=== PATIENT | male | born 1960 | race Hispanic/Latino ===

== ENCOUNTER 2020-10-24 08:52 | Emergency (ER) | payer SELFPAY ==
[2020-10-24] MEDS ORDERED: Sodium Chloride 0.9% 1,000 ML ONE (09:34)
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
[2020-10-24 10:15] LABS: #Basophils 0.1 thou/uL (0.0-0.2); #Eosinphils 0.1 thou/uL (0.0-0.7); #Lymphocytes 1.5 thou/uL (1.20-3.40); #Monocytes 0.4 thou/uL (0.11-0.59); #Neutrophils 4.6 thou/uL (1.40-6.50); %Basophils 0.9 % (0.0-1.0); %Lymphocytes 22.2 % (21.0-51.0); %Monocytes 6.6 % (0.0-10.0); %Neutrophils 69.3 % (42.0-75.0); Hemoglobin 13.2 g/dL (14.0-18.0); Mean Corpuscular HGB CONC 33.4 g/dL (32.0-36.0); Mean Corpuscular Hemoglobin 28.8 pg (27.0-31.0); Mean Corpuscular Volume 86.2 fL (78.0-98.0); Mean Platelet Volume 7.5 fL (7.4-10.4); Platelet Count 191 thou/uL (130-400); RBC Distribution Width 11.2 % (11.5-14.5); Red Blood Cell (RBC) Count 4.58 mill/uL (4.70-6.10); White Blood Cell (WBC) Count 6.6 thou/uL (4.8-10.8)
[2020-10-24 10:29] LABS: ALT (SGPT) 20 U/L (8-55); AST (SGOT) 17 U/L (5-34); Albumin 3.7 g/dL (3.5-5.0); Alcohol Less than 10 mg/dL (Less than 10); Alkaline Phosphatase 143 U/L (40-110); Anion Gap 13 mmol/L (10-20); BUN (Urea Nitrogen) 15 mg/dL (8.4-25.7); Bilirubin, Total 0.3 mg/dL (0.2-1.2); Calc. Creatinine Clearance 0 mL/min (70-130); Calcium 8.3 mg/dL (7.8-10.44); Carbon Dioxide 25 mmol/L (22-29); Chloride 104 mmol/L (98-107); Globulin 2.8 g/dL (2.4-3.5); Glucose 401 mg/dL (70-105); Potassium 3.9 mmol/L (3.5-5.1); Protein, Total 6.5 g/dL (6.0-8.3); Sodium 138 mmol/L (136-145)
[2020-10-24] MEDS ORDERED: Insulin Regular 300 UNITS/3 ML VIAL ONE (10:54)
[2020-10-24 11:52] LABS: Bilirubin Negative (Negative); Blood, Urine Negative (Negative); Clarity Clear (Clear); Glucose, Urine (Dipstick) >=1000 mg/dL (Negative); Ketone, Urine 15 mg/dL (Negative); Leukocyte Negative (Negative); Nitrite Negative (Negative); Protein, Urine (Dipstick) Trace mg/dL (Neg-Trace); Urobilinogen 0.2 mg/dL (Less than 2)
[2020-10-24 12:26] LABS: Cocaine Metabolite Screen Not Detected (NotDetected); Phencyclidine (PCP) Not Detected (NotDetected); THC/Cannabinoid Screen Not Detected (NotDetected)
[2020-10-24 12:27] LABS: Amphetamine Not Detected (NotDetected); Barbiturates Screen Not Detected (NotDetected); Benzodiazepine Screen Not Detected (NotDetected); Medtox Control Line Valid? VALID (VALID); Methadone Not Detected (NotDetected); Methamphetamine Detected (NotDetected); Opiate Screen Not Detected (NotDetected); Oxycodone Screen Not Detected (NotDetected); Tricyclic Screen Not Detected (NotDetected)
== END 2020-10-24 12:32 | disposition home or self-care (01) ==
LOC: MADERS 08:52
DX: S06.0X0A Concussion without loss of consciousness, initial encounter (principal); E11.65 Type 2 diabetes mellitus with hyperglycemia; F15.10 Other stimulant abuse, uncomplicated; K21.9 Gastro-esophageal reflux disease without esophagitis; E78.5 Hyperlipidemia, unspecified; E78.00 Pure hypercholesterolemia, unspecified; Z79.84 Long term (current) use of oral hypoglycemic drugs; V89.2XXA Person injured in unspecified motor-vehicle accident, traffic, initial encounter
CPT/HCPCS: 36415; 36416; 70450; 71045; 72125; 80053; 80306; 80307; 81003; 85025; 94760; 96374; J1815; J7050

== ENCOUNTER 2021-01-31 14:12 | Emergency (ER) | payer OTHER, SELFPAY ==
[~2021-01-31 14:12] MED LIST: Sodium Chloride 0.9% 1,000 ML BAG ONE; Sodium Chloride 0.9% 100 ML BAG ONE; Sodium Chloride 0.9% 500 ML BAG ONE
[2021-01-31] MEDS ORDERED: Ibuprofen 400 MG TAB ONE (14:56)
[2021-01-31] MEDS ORDERED: Vancomycin HCl 500 MG VIAL ONE (14:56)
[2021-01-31 14:57] LABS: #Basophils 0.1 thou/uL (0.0-0.2); #Lymphocytes 0.8 thou/uL (1.20-3.40); #Monocytes 0.6 thou/uL (0.11-0.59); #Neutrophils 11.3 thou/uL (1.40-6.50); %Basophils 0.6 % (0.0-1.0); %Eosinophils 0.1 % (0.0-10.0); %Lymphocytes 5.9 % (21.0-51.0); %Neutrophils 88.4 % (42.0-75.0); Hemoglobin 14.6 g/dL (14.0-18.0); Mean Corpuscular HGB CONC 32.5 g/dL (32.0-36.0); Mean Corpuscular Hemoglobin 28.9 pg (27.0-31.0); Mean Corpuscular Volume 88.9 fL (78.0-98.0); Mean Platelet Volume 7.6 fL (7.4-10.4); Platelet Count 387 thou/uL (130-400); RBC Distribution Width 11.3 % (11.5-14.5); Red Blood Cell (RBC) Count 5.05 mill/uL (4.70-6.10); White Blood Cell (WBC) Count 12.7 thou/uL (4.8-10.8)
[2021-01-31] MEDS ORDERED: Cefepime 2 GM VIAL ONE (14:57)
[2021-01-31] MEDS ORDERED: Clindamycin/D5W 900 mg/50 ml Premix Bag ONE (14:57)
[2021-01-31] MEDS ORDERED: Acetaminophen 500 MG TAB ONE (14:58)
[2021-01-31 15:11] LABS: ALT (SGPT) 10 U/L (8-55); AST (SGOT) 10 U/L (5-34); Albumin 3.8 g/dL (3.5-5.0); Alkaline Phosphatase 199 U/L (40-110); Anion Gap 23 mmol/L (10-20); BUN (Urea Nitrogen) 13 mg/dL (8.4-25.7); Bilirubin, Total 0.3 mg/dL (0.2-1.2); Calc. Creatinine Clearance 0 mL/min (70-130); Calcium 9.5 mg/dL (7.8-10.44); Carbon Dioxide 23 mmol/L (22-29); Chloride 90 mmol/L (98-107); Globulin 4.4 g/dL (2.4-3.5); Glucose 479 mg/dL (70-105); Potassium 4.7 mmol/L (3.5-5.1); Protein, Total 8.2 g/dL (6.0-8.3); Sodium 131 mmol/L (136-145)
[2021-01-31 15:38] LABS: INR-International Normal Ratio 0.9; PTT 27.6 sec (22.9-36.1); Prothrombin Time 12.2 sec (12.0-14.7)
[2021-01-31 22:01] LABS: Hemoglobin A1c Greater than 14.0 % (4.0-6.0)
== END 2021-01-31 19:13 | disposition short-term general hospital (02) ==
LOC: MADERS 14:12
DX: A41.9 Sepsis, unspecified organism (principal); E11.65 Type 2 diabetes mellitus with hyperglycemia; E11.52 Type 2 diabetes mellitus with diabetic peripheral angiopathy with gangrene; I96 Gangrene, not elsewhere classified; L03.116 Cellulitis of left lower limb; K21.9 Gastro-esophageal reflux disease without esophagitis; E78.00 Pure hypercholesterolemia, unspecified; E78.5 Hyperlipidemia, unspecified; Z79.84 Long term (current) use of oral hypoglycemic drugs
CPT/HCPCS: 36416; 71045; 80053; 83036; 83605; 84484; 85025; 85610; 85730; 86140; 87040; 87070; 87077; 87149; 87186; 87205; 96365; 96366; 96367; J0692; J3370; J3490; J7030; J7050

== ENCOUNTER 2021-05-30 11:19 | Emergency (ER) | payer OTHER ==
[2021-05-30 12:06] LABS: #Basophils 0.1 thou/uL (0.0-0.2); #Eosinphils 0.1 thou/uL (0.0-0.7); #Lymphocytes 1.5 thou/uL (1.20-3.40); #Monocytes 1.3 thou/uL (0.11-0.59); #Neutrophils 9.8 thou/uL (1.40-6.50); %Basophils 0.8 % (0.0-1.0); %Eosinophils 0.4 % (0.0-10.0); %Lymphocytes 11.7 % (21.0-51.0); %Monocytes 10.4 % (0.0-10.0); %Neutrophils 76.7 % (42.0-75.0); Hemoglobin 13.6 g/dL (14.0-18.0); Mean Corpuscular HGB CONC 31.5 g/dL (32.0-36.0); Mean Corpuscular Hemoglobin 27.3 pg (27.0-31.0); Mean Corpuscular Volume 86.9 fL (78.0-98.0); Mean Platelet Volume 7.9 fL (7.4-10.4); Platelet Count 260 thou/uL (130-400); Red Blood Cell (RBC) Count 4.99 mill/uL (4.70-6.10); White Blood Cell (WBC) Count 12.8 thou/uL (4.8-10.8)
[2021-05-30 12:21] LABS: ALT (SGPT) 9 U/L (8-55); AST (SGOT) 13 U/L (5-34); Albumin 3.2 g/dL (3.5-5.0); Alkaline Phosphatase 131 U/L (40-110); Anion Gap 20 mmol/L (10-20); BUN (Urea Nitrogen) 19 mg/dL (8.4-25.7); Bilirubin, Total 0.3 mg/dL (0.2-1.2); Calc. Creatinine Clearance 0 mL/min (70-130); Calcium 9.3 mg/dL (7.8-10.44); Carbon Dioxide 25 mmol/L (22-29); Chloride 90 mmol/L (98-107); Globulin 3.6 g/dL (2.4-3.5); Glucose 438 mg/dL (70-105); Potassium 4.7 mmol/L (3.5-5.1); Protein, Total 6.8 g/dL (6.0-8.3); Sodium 130 mmol/L (136-145)
[2021-05-30] MEDS ORDERED: Sodium Chloride 0.9% 1,000 ML ONE (12:53)
[2021-05-30] MEDS ORDERED: Clindamycin/D5W 600 mg/50 ml Premix Bag ONE (12:53)
== END 2021-05-30 14:14 | disposition home or self-care (01) ==
LOC: MADERS 11:19
DX: E11.621 Type 2 diabetes mellitus with foot ulcer (principal); L03.116 Cellulitis of left lower limb; E11.65 Type 2 diabetes mellitus with hyperglycemia; E78.5 Hyperlipidemia, unspecified; E78.00 Pure hypercholesterolemia, unspecified; K21.9 Gastro-esophageal reflux disease without esophagitis; Z79.84 Long term (current) use of oral hypoglycemic drugs
CPT/HCPCS: 36415; 80053; 85025; 96365; J3490; J7050

== ENCOUNTER 2021-06-02 14:55 | Emergency (ER) | payer OTHER, SELFPAY | END 2021-06-02 15:44 | disposition home or self-care (01) | LOC: MADERS 14:55 | DX: Z76.0 Encounter for issue of repeat prescription (principal); E11.9 Type 2 diabetes mellitus without complications; K21.9 Gastro-esophageal reflux disease without esophagitis; E78.5 Hyperlipidemia, unspecified; E78.00 Pure hypercholesterolemia, unspecified; Z79.84 Long term (current) use of oral hypoglycemic drugs | CPT/HCPCS: 99281 ==

== ENCOUNTER 2021-06-10 16:26 | Inpatient (IN) | payer OTHER ==
[2021-06-10 16:55] VITALS: BMI 23.8
[2021-06-10] MEDS ORDERED: Dextrose 50% Abboject 50 ML SYRINGE IVP PRN (20:00)
[2021-06-10] MEDS ORDERED: Dextrose 5% in Water 1,000 ML IV PRN (20:00)
[2021-06-10] MEDS: Gabapentin 300 MG CAP PO SCH (20:15)
[2021-06-10] MEDS: Lantus 1000 UNITS/10 ML VIAL SC SCH (20:15)
[2021-06-10] MEDS: Famotidine 20 MG TAB PO SCH (20:15)
[2021-06-10] MEDS: Atorvastatin Calcium 10 MG TAB PO SCH (20:16)
[2021-06-10] MEDS: HumaLOG 300 UNITS/3 ML VIAL SC PRN (21:35)
[2021-06-11 05:24] LABS: #Eosinphils 0.2 thou/uL (0.0-0.7); #Lymphocytes 1.9 thou/uL (1.20-3.40); #Monocytes 0.6 thou/uL (0.11-0.59); #Neutrophils 8.5 thou/uL (1.40-6.50); %Basophils 0.4 % (0.0-1.0); %Eosinophils 1.5 % (0.0-10.0); %Lymphocytes 16.9 % (21.0-51.0); %Monocytes 5.6 % (0.0-10.0); %Neutrophils 75.6 % (42.0-75.0); Hemoglobin 8.8 g/dL (14.0-18.0); Mean Corpuscular HGB CONC 32.6 g/dL (32.0-36.0); Mean Corpuscular Hemoglobin 28.5 pg (27.0-31.0); Mean Corpuscular Volume 87.2 fL (78.0-98.0); Mean Platelet Volume 6.2 fL (7.4-10.4); Platelet Count 413 thou/uL (130-400); RBC Distribution Width 13.5 % (11.5-14.5); Red Blood Cell (RBC) Count 3.09 mill/uL (4.70-6.10); White Blood Cell (WBC) Count 11.2 thou/uL (4.8-10.8)
[2021-06-11 05:43] LABS: ALT (SGPT) 47 U/L (8-55); AST (SGOT) 68 U/L (5-34); Albumin 2.7 g/dL (3.5-5.0); Alkaline Phosphatase 124 U/L (40-110); Anion Gap 12 mmol/L (10-20); BUN (Urea Nitrogen) 29 mg/dL (8.4-25.7); Bilirubin, Total 0.2 mg/dL (0.2-1.2); Calc. Creatinine Clearance 73 mL/min (70-130); Calcium 8.9 mg/dL (7.8-10.44); Carbon Dioxide 31 mmol/L (22-29); Chloride 99 mmol/L (98-107); Globulin 3.7 g/dL (2.4-3.5); Glucose 150 mg/dL (70-105); Potassium 4.6 mmol/L (3.5-5.1); Protein, Total 6.4 g/dL (6.0-8.3); Sodium 137 mmol/L (136-145)
[2021-06-11] MEDS: Famotidine 20 MG TAB PO SCH ×2 (08:31→20:44)
[2021-06-11] MEDS: Gabapentin 300 MG CAP PO SCH ×3 (08:31→20:44)
[2021-06-11] MEDS: Aspirin Chewable 81 MG TAB PO SCH (08:31)
[2021-06-11] MEDS: metFORMIN 500 MG TAB PO SCH ×2 (08:31→17:19)
[2021-06-11] MEDS: Enoxaparin Sodium 40 MG/0.4 ML SYRINGE SC SCH (08:32)
[2021-06-11] MEDS: Acetaminophen 500 MG TAB PO PRN (08:40)
[2021-06-11] MEDS ORDERED: Triple Antibiotic Oint 1 GM Packet TOP PRN (09:28)
[2021-06-11 11:12] LABS: Hemoglobin A1c Greater than 14.0 % (4.0-6.0)
[2021-06-11] MEDS: HumaLOG 300 UNITS/3 ML VIAL SC PRN ×3 (12:10→21:49)
[2021-06-11] MEDS: Atorvastatin Calcium 10 MG TAB PO SCH (20:43)
[2021-06-11] MEDS: Ibuprofen 600 MG TAB PO PRN (20:44)
[2021-06-11] MEDS: Lantus 1000 UNITS/10 ML VIAL SC SCH (21:47)
[2021-06-12 05:28] LABS: #Basophils 0.1 thou/uL (0.0-0.2); #Eosinphils 0.1 thou/uL (0.0-0.7); #Lymphocytes 2.3 thou/uL (1.20-3.40); #Monocytes 0.7 thou/uL (0.11-0.59); #Neutrophils 8.1 thou/uL (1.40-6.50); %Basophils 0.6 % (0.0-1.0); %Eosinophils 0.8 % (0.0-10.0); %Lymphocytes 20.1 % (21.0-51.0); %Monocytes 6.4 % (0.0-10.0); %Neutrophils 72.1 % (42.0-75.0); Hemoglobin 8.1 g/dL (14.0-18.0); Mean Corpuscular HGB CONC 31.5 g/dL (32.0-36.0); Mean Corpuscular Hemoglobin 27.9 pg (27.0-31.0); Mean Corpuscular Volume 88.6 fL (78.0-98.0); Mean Platelet Volume 6.3 fL (7.4-10.4); Platelet Count 409 thou/uL (130-400); RBC Distribution Width 14.1 % (11.5-14.5); White Blood Cell (WBC) Count 11.2 thou/uL (4.8-10.8)
[2021-06-12] MEDS: Famotidine 20 MG TAB PO SCH ×2 (09:33→22:01)
[2021-06-12] MEDS: Enoxaparin Sodium 40 MG/0.4 ML SYRINGE SC SCH (09:33)
[2021-06-12] MEDS: metFORMIN 500 MG TAB PO SCH ×2 (09:33→17:33)
[2021-06-12] MEDS: Aspirin Chewable 81 MG TAB PO SCH (09:33)
[2021-06-12] MEDS: Gabapentin 300 MG CAP PO SCH ×3 (09:36→22:01)
[2021-06-12] MEDS: Ibuprofen 600 MG TAB PO PRN ×2 (11:38→22:04)
[2021-06-12] MEDS: HumaLOG 300 UNITS/3 ML VIAL SC SCH ×2 (11:39→17:32)
[2021-06-12] MEDS: Atorvastatin Calcium 10 MG TAB PO SCH (22:00)
[2021-06-12] MEDS: Lantus 1000 UNITS/10 ML VIAL SC SCH (22:02)
[2021-06-13 05:29] LABS: #Basophils 0.1 thou/uL (0.0-0.2); #Eosinphils 0.1 thou/uL (0.0-0.7); #Lymphocytes 1.7 thou/uL (1.20-3.40); #Monocytes 0.8 thou/uL (0.11-0.59); #Neutrophils 9.1 thou/uL (1.40-6.50); %Basophils 0.7 % (0.0-1.0); %Eosinophils 0.6 % (0.0-10.0); %Lymphocytes 14.4 % (21.0-51.0); %Monocytes 6.8 % (0.0-10.0); %Neutrophils 77.5 % (42.0-75.0); Hemoglobin 8.2 g/dL (14.0-18.0); Mean Corpuscular Hemoglobin 28.4 pg (27.0-31.0); Mean Corpuscular Volume 88.7 fL (78.0-98.0); Mean Platelet Volume 6.3 fL (7.4-10.4); Platelet Count 449 thou/uL (130-400); RBC Distribution Width 13.9 % (11.5-14.5); White Blood Cell (WBC) Count 11.7 thou/uL (4.8-10.8)
[2021-06-13] MEDS: metFORMIN 500 MG TAB PO SCH ×2 (08:52→17:49)
[2021-06-13] MEDS: Aspirin Chewable 81 MG TAB PO SCH (08:52)
[2021-06-13] MEDS: Gabapentin 300 MG CAP PO SCH ×3 (08:52→21:17)
[2021-06-13] MEDS: Famotidine 20 MG TAB PO SCH ×2 (08:54→21:17)
[2021-06-13] MEDS: Acetaminophen 500 MG TAB PO PRN (08:54)
[2021-06-13] MEDS: Enoxaparin Sodium 40 MG/0.4 ML SYRINGE SC SCH (08:54)
[2021-06-13] MEDS: HumaLOG 300 UNITS/3 ML VIAL SC SCH ×3 (08:55→17:49)
[2021-06-13] MEDS: Atorvastatin Calcium 10 MG TAB PO SCH (21:16)
[2021-06-13] MEDS: Lantus 1000 UNITS/10 ML VIAL SC SCH (21:18)
[2021-06-14 03:44] LABS: SARS-CoV-2 PCR by NAA Not Detected (NotDetected)
[2021-06-14] MEDS: Gabapentin 300 MG CAP PO SCH ×3 (08:34→20:10)
[2021-06-14] MEDS: Famotidine 20 MG TAB PO SCH ×2 (08:34→20:10)
[2021-06-14] MEDS: metFORMIN 500 MG TAB PO SCH ×2 (08:34→17:05)
[2021-06-14] MEDS: Aspirin Chewable 81 MG TAB PO SCH (08:34)
[2021-06-14] MEDS: HumaLOG 300 UNITS/3 ML VIAL SC SCH ×3 (08:35→17:05)
[2021-06-14] MEDS: Enoxaparin Sodium 40 MG/0.4 ML SYRINGE SC SCH (08:35)
[2021-06-14] MEDS: Lantus 1000 UNITS/10 ML VIAL SC SCH (20:09)
[2021-06-14] MEDS: Atorvastatin Calcium 10 MG TAB PO SCH (20:10)
[2021-06-15] MEDS ORDERED: Sodium Chloride 0.9% 100 ML BAG ONE (06:28)
[2021-06-15] MEDS: HumaLOG 300 UNITS/3 ML VIAL SC SCH ×3 (08:04→17:24)
[2021-06-15] MEDS: Aspirin Chewable 81 MG TAB PO SCH (08:46)
[2021-06-15] MEDS: Enoxaparin Sodium 40 MG/0.4 ML SYRINGE SC SCH (08:46)
[2021-06-15] MEDS: metFORMIN 500 MG TAB PO SCH ×2 (08:46→17:20)
[2021-06-15] MEDS: Gabapentin 300 MG CAP PO SCH ×3 (08:47→20:05)
[2021-06-15] MEDS: Famotidine 20 MG TAB PO SCH ×2 (08:48→20:07)
[2021-06-15 09:35] LABS: #Basophils 0.1 thou/uL (0.0-0.2); #Lymphocytes 1.3 thou/uL (1.20-3.40); #Monocytes 0.9 thou/uL (0.11-0.59); #Neutrophils 9.7 thou/uL (1.40-6.50); %Eosinophils 0.2 % (0.0-10.0); %Lymphocytes 10.8 % (21.0-51.0); %Monocytes 7.4 % (0.0-10.0); %Neutrophils 80.6 % (42.0-75.0); Hemoglobin 8.5 g/dL (14.0-18.0); Mean Corpuscular HGB CONC 32.5 g/dL (32.0-36.0); Mean Corpuscular Hemoglobin 28.4 pg (27.0-31.0); Mean Corpuscular Volume 87.5 fL (78.0-98.0); Mean Platelet Volume 6.2 fL (7.4-10.4); Platelet Count 588 thou/uL (130-400); RBC Distribution Width 14.1 % (11.5-14.5); White Blood Cell (WBC) Count 12.1 thou/uL (4.8-10.8)
[2021-06-15 09:49] LABS: ALT (SGPT) 69 U/L (8-55); AST (SGOT) 44 U/L (5-34); Alkaline Phosphatase 318 U/L (40-110); Anion Gap 13 mmol/L (10-20); BUN (Urea Nitrogen) 33 mg/dL (8.4-25.7); Bilirubin, Total 0.3 mg/dL (0.2-1.2); Calc. Creatinine Clearance 77 mL/min (70-130); Calcium 9.2 mg/dL (7.8-10.44); Carbon Dioxide 28 mmol/L (22-29); Chloride 95 mmol/L (98-107); Globulin 4.3 g/dL (2.4-3.5); Glucose 126 mg/dL (70-105); Potassium 5.3 mmol/L (3.5-5.1); Protein, Total 7.3 g/dL (6.0-8.3); Sodium 131 mmol/L (136-145)
[2021-06-15] MEDS ORDERED: Iopamidol 370 76% 125 ML VIAL FS ONE (10:16)
[2021-06-15] MEDS ORDERED: Furosemide 40 MG TAB PO SCH ×2 (12:45→21:00)
[2021-06-15] MEDS ORDERED: cefTRIAXone\\ROCEPHIN 1 GM in Sodium Chloride 0.9% 100 ML IVPB SCH (13:00)
[2021-06-15] MEDS ORDERED: Azithromycin 500 MG in Sodium Chloride 0.9% 250 ML 250 ML IVPB SCH (14:00)
[2021-06-15 17:05] LABS: SARS-CoV-2 NAA Rapid Test Not Detected (NotDetected)
[2021-06-15 17:09] LABS: CKMB 5.1 ng/mL (0-6.6)
[2021-06-15] MEDS: Lantus 1000 UNITS/10 ML VIAL SC SCH (20:06)
[2021-06-15] MEDS: Atorvastatin Calcium 10 MG TAB PO SCH (20:06)
[2021-06-15 20:56] VITALS: BP 122/76; TEMP 98.3
[2021-06-15] MEDS ORDERED: Carvedilol 3.125 MG TAB PO SCH (21:00)
[2021-06-16] MEDS ORDERED: Furosemide 40 MG TAB PO SCH (09:00)
== END 2021-06-15 21:49 | disposition short-term general hospital (02) | DRG 560 ==
LOC: MADMS 16:26
PROVIDERS: ADMIT Family Medicine; ATTEND Family Medicine
DX: Z47.81 Encounter for orthopedic aftercare following surgical amputation (principal); J84.9 Interstitial pulmonary disease, unspecified; R53.1 Weakness; E11.42 Type 2 diabetes mellitus with diabetic polyneuropathy; I50.9 Heart failure, unspecified; E78.5 Hyperlipidemia, unspecified; Z20.822 Contact with and (suspected) exposure to COVID-19; J02.9 Acute pharyngitis, unspecified; D64.9 Anemia, unspecified; R51.9 Headache, unspecified; Z79.82 Long term (current) use of aspirin; Z79.899 Other long term (current) drug therapy; Z79.4 Long term (current) use of insulin
CPT/HCPCS: 36415; 36416; 71045; 71275; 80053; 82553; 83036; 83880; 84443; 84484; 85025; 85379; 87040; 90471; 90732; G0009; J0456; J0696; J1650; J1815; J3490; J7050; Q9967; U0002; U0003; U0005

== ENCOUNTER 2021-06-21 22:01 | Inpatient (IN) | payer OTHER ==
[2021-06-22] MEDS ORDERED: Melatonin 3 MG TAB PO PRN (00:14)
[2021-06-22] MEDS ORDERED: Nitroglycerin 0.4 MG TAB (25 Tab Bottle) SL PRN (00:14)
[2021-06-22] MEDS ORDERED: Dextrose 50% Abboject 50 ML SYRINGE IVP PRN ×2 (00:15→10:15)
[2021-06-22] MEDS ORDERED: Dextrose 5% in Water 1,000 ML IV PRN ×2 (00:15→10:15)
[2021-06-22] MEDS ORDERED: HumaLOG 300 UNITS/3 ML VIAL SC PRN (00:15)
[2021-06-22] MEDS ORDERED: Acetaminophen 500 MG TAB PO PRN (00:16)
[2021-06-22] MEDS ORDERED: Senokot 8.6 MG TAB PO PRN (00:29)
[2021-06-22] MEDS ORDERED: Atorvastatin Calcium 40 MG TAB PO SCH (00:30)
[2021-06-22] MEDS ORDERED: Gabapentin 300 MG CAP PO SCH (00:30)
[2021-06-22] MEDS ORDERED: Lantus 1000 UNITS/10 ML VIAL SC SCH (00:30)
[2021-06-22] MEDS ORDERED: Tamsulosin HCl 0.4 MG CAP PO SCH (00:30)
[2021-06-22] MEDS ORDERED: Famotidine 20 MG TAB PO SCH (00:30)
[2021-06-22] MEDS ORDERED: Ibuprofen 600 MG TAB PO PRN (00:31)
[2021-06-22 05:23] LABS: #Basophils 0.1 thou/uL (0.0-0.2); #Eosinphils 0.1 thou/uL (0.0-0.7); #Lymphocytes 1.7 thou/uL (1.20-3.40); #Monocytes 0.8 thou/uL (0.11-0.59); #Neutrophils 6.3 thou/uL (1.40-6.50); %Eosinophils 1.3 % (0.0-10.0); %Lymphocytes 19.1 % (21.0-51.0); %Monocytes 8.6 % (0.0-10.0); %Neutrophils 70.1 % (42.0-75.0); Hemoglobin 9.7 g/dL (14.0-18.0); Mean Corpuscular HGB CONC 31.9 g/dL (32.0-36.0); Mean Corpuscular Volume 87.8 fL (78.0-98.0); Mean Platelet Volume 5.8 fL (7.4-10.4); Platelet Count 513 thou/uL (130-400); RBC Distribution Width 14.2 % (11.5-14.5); Red Blood Cell (RBC) Count 3.48 mill/uL (4.70-6.10)
[2021-06-22 05:41] LABS: ALT (SGPT) 24 U/L (8-55); AST (SGOT) 17 U/L (5-34); Albumin 2.8 g/dL (3.4-4.8); Alkaline Phosphatase 202 U/L (40-110); Anion Gap 15 mmol/L (10-20); BUN (Urea Nitrogen) 45 mg/dL (8.4-25.7); Bilirubin, Total 0.2 mg/dL (0.2-1.2); Calc. Creatinine Clearance 78 mL/min (70-130); Carbon Dioxide 30 mmol/L (23-31); Chloride 96 mmol/L (98-107); Glucose 270 mg/dL (80-115); Potassium 4.5 mmol/L (3.5-5.1); Protein, Total 6.8 g/dL (5.8-8.1); Sodium 136 mmol/L (136-145)
[2021-06-22] MEDS: Carvedilol 3.125 MG TAB PO SCH ×2 (08:10→17:03)
[2021-06-22] MEDS: Gabapentin 300 MG CAP PO SCH ×3 (08:10→21:52)
[2021-06-22] MEDS: Aspirin Chewable 81 MG TAB PO SCH (08:10)
[2021-06-22] MEDS: metFORMIN 500 MG TAB PO SCH ×2 (08:10→17:03)
[2021-06-22] MEDS: Famotidine 20 MG TAB PO SCH ×2 (08:10→21:53)
[2021-06-22] MEDS: Enoxaparin Sodium 40 MG/0.4 ML SYRINGE SC SCH (08:16)
[2021-06-22] MEDS: HumaLOG 300 UNITS/3 ML VIAL SC PRN ×2 (12:06→17:12)
[2021-06-22] MEDS: Tamsulosin HCl 0.4 MG CAP PO SCH (21:53)
[2021-06-22] MEDS: Atorvastatin Calcium 40 MG TAB PO SCH (21:53)
[2021-06-22] MEDS: Lantus 1000 UNITS/10 ML VIAL SC SCH (21:56)
[2021-06-23 00:22] LABS: SARS-CoV-2 PCR by NAA Not Detected (NotDetected)
[2021-06-23] MEDS: Gabapentin 300 MG CAP PO SCH ×3 (08:32→21:38)
[2021-06-23] MEDS: HumaLOG 300 UNITS/3 ML VIAL SC PRN ×3 (08:32→16:55)
[2021-06-23] MEDS: Famotidine 20 MG TAB PO SCH ×2 (08:32→21:37)
[2021-06-23] MEDS: Enoxaparin Sodium 40 MG/0.4 ML SYRINGE SC SCH (08:33)
[2021-06-23] MEDS: Aspirin Chewable 81 MG TAB PO SCH (08:33)
[2021-06-23] MEDS: Carvedilol 3.125 MG TAB PO SCH ×2 (08:33→16:06)
[2021-06-23] MEDS: metFORMIN 500 MG TAB PO SCH ×2 (08:33→16:06)
[2021-06-23] MEDS ORDERED: Furosemide 40 MG TAB PO SCH (09:45)
[2021-06-23] MEDS: Tamsulosin HCl 0.4 MG CAP PO SCH (21:37)
[2021-06-23] MEDS: Atorvastatin Calcium 40 MG TAB PO SCH (21:37)
[2021-06-23] MEDS: Lantus 1000 UNITS/10 ML VIAL SC SCH (21:41)
[2021-06-24] MEDS: Aspirin Chewable 81 MG TAB PO SCH (08:38)
[2021-06-24] MEDS: Gabapentin 300 MG CAP PO SCH ×3 (08:38→21:04)
[2021-06-24] MEDS: Famotidine 20 MG TAB PO SCH ×2 (08:39→21:05)
[2021-06-24] MEDS: metFORMIN 500 MG TAB PO SCH ×2 (08:39→17:26)
[2021-06-24] MEDS: Furosemide 40 MG TAB PO SCH (08:39)
[2021-06-24] MEDS: Carvedilol 3.125 MG TAB PO SCH ×2 (08:39→17:26)
[2021-06-24] MEDS: Enoxaparin Sodium 40 MG/0.4 ML SYRINGE SC SCH (08:39)
[2021-06-24] MEDS ORDERED: Dextrose 50% Abboject 50 ML SYRINGE IVP PRN (10:15)
[2021-06-24] MEDS ORDERED: Dextrose 5% in Water 1,000 ML IV PRN (10:15)
[2021-06-24] MEDS: Atorvastatin Calcium 40 MG TAB PO SCH (21:04)
[2021-06-24] MEDS: Tamsulosin HCl 0.4 MG CAP PO SCH (21:04)
[2021-06-24] MEDS: Ibuprofen 600 MG TAB PO PRN (21:05)
[2021-06-24] MEDS: Lantus 1000 UNITS/10 ML VIAL SC SCH (21:17)
[2021-06-24] MEDS ORDERED: Lantus 1000 UNITS/10 ML VIAL SC SCH (22:00)
[2021-06-25] MEDS: Ibuprofen 600 MG TAB PO PRN (05:27)
[2021-06-25] MEDS: Carvedilol 3.125 MG TAB PO SCH ×2 (07:55→16:50)
[2021-06-25] MEDS: metFORMIN 500 MG TAB PO SCH ×2 (07:55→16:50)
[2021-06-25] MEDS ORDERED: Ondansetron ODT 4 MG TAB PO PRN (08:20)
[2021-06-25] MEDS ORDERED: metFORMIN 500 MG TAB PO SCH (08:30)
[2021-06-25] MEDS: Gabapentin 300 MG CAP PO SCH ×3 (09:38→21:21)
[2021-06-25] MEDS: Enoxaparin Sodium 40 MG/0.4 ML SYRINGE SC SCH (09:39)
[2021-06-25] MEDS: Aspirin Chewable 81 MG TAB PO SCH (09:39)
[2021-06-25] MEDS: Furosemide 40 MG TAB PO SCH (09:39)
[2021-06-25] MEDS ORDERED: Lantus 1000 UNITS/10 ML VIAL SC SCH (21:00)
[2021-06-25] MEDS: Atorvastatin Calcium 40 MG TAB PO SCH (21:21)
[2021-06-25] MEDS: Tamsulosin HCl 0.4 MG CAP PO SCH (21:21)
[2021-06-25] MEDS: Melatonin 3 MG TAB PO PRN (21:23)
[2021-06-26 07:31] LABS: #Basophils 0.1 thou/uL (0.0-0.2); #Eosinphils 0.2 thou/uL (0.0-0.7); #Lymphocytes 1.4 thou/uL (1.20-3.40); #Monocytes 0.7 thou/uL (0.11-0.59); #Neutrophils 3.9 thou/uL (1.40-6.50); %Basophils 1.4 % (0.0-1.0); %Eosinophils 2.6 % (0.0-10.0); %Lymphocytes 22.3 % (21.0-51.0); %Monocytes 10.7 % (0.0-10.0); %Neutrophils 63.1 % (42.0-75.0); Hemoglobin 9.3 g/dL (14.0-18.0); Mean Corpuscular HGB CONC 30.5 g/dL (32.0-36.0); Mean Corpuscular Hemoglobin 27.1 pg (27.0-31.0); Mean Corpuscular Volume 89.1 fL (78.0-98.0); Mean Platelet Volume 6.2 fL (7.4-10.4); Platelet Count 367 thou/uL (130-400); RBC Distribution Width 14.4 % (11.5-14.5); Red Blood Cell (RBC) Count 3.41 mill/uL (4.70-6.10); White Blood Cell (WBC) Count 6.2 thou/uL (4.8-10.8)
[2021-06-26 08:13] LABS: Bilirubin Negative (Negative); Blood, Urine Negative (Negative); Clarity Clear (Clear); Glucose, Urine (Dipstick) Negative (Negative); Ketone, Urine Trace mg/dL (Negative); Leukocyte Negative (Negative); Nitrite Negative (Negative); Protein, Urine (Dipstick) Negative (Neg-Trace); Specific Gravity, Urine 1.015 (1.005-1.030); Urobilinogen 0.2 mg/dL (Less than 2)
[2021-06-26 08:14] LABS: Urine Culture Reflex No No
[2021-06-26 08:35] LABS: Bacteria/HPF Rare-Few HPF (None Seen); RBC/HPF 0-3 HPF (0-3); Squamous Epithelial 0-3 HPF (0-3); WBC/HPF 0-3 HPF (0-3)
[2021-06-26 08:43] LABS: ALT (SGPT) 15 U/L (8-55); AST (SGOT) 14 U/L (5-34); Albumin 2.7 g/dL (3.4-4.8); Alkaline Phosphatase 144 U/L (40-110); Anion Gap 10 mmol/L (10-20); BUN (Urea Nitrogen) 29 mg/dL (8.4-25.7); Bilirubin, Total 0.2 mg/dL (0.2-1.2); Calc. Creatinine Clearance 97 mL/min (70-130); Calcium 9.1 mg/dL (7.8-10.44); Carbon Dioxide 34 mmol/L (23-31); Chloride 98 mmol/L (98-107); Globulin 3.6 g/dL (2.4-3.5); Glucose 83 mg/dL (80-115); Potassium 4.8 mmol/L (3.5-5.1); Protein, Total 6.3 g/dL (5.8-8.1); Sodium 137 mmol/L (136-145)
[2021-06-26] MEDS: Carvedilol 3.125 MG TAB PO SCH ×2 (08:57→17:47)
[2021-06-26] MEDS: metFORMIN 500 MG TAB PO SCH ×2 (08:57→17:48)
[2021-06-26] MEDS: Aspirin Chewable 81 MG TAB PO SCH (08:58)
[2021-06-26] MEDS: Enoxaparin Sodium 40 MG/0.4 ML SYRINGE SC SCH (08:58)
[2021-06-26] MEDS: Furosemide 40 MG TAB PO SCH (08:59)
[2021-06-26] MEDS: Gabapentin 300 MG CAP PO SCH ×3 (08:59→21:57)
[2021-06-26] MEDS ORDERED: Polyethylene Glycol 3350 17 GM Packet PO SCH (09:00)
[2021-06-26] MEDS: Bisacodyl 10 MG SUPP PR PRN (13:56)
[2021-06-26] MEDS: HumaLOG 300 UNITS/3 ML VIAL SC PRN (17:15)
[2021-06-26] MEDS: Atorvastatin Calcium 40 MG TAB PO SCH (21:57)
[2021-06-26] MEDS: Polyethylene Glycol 3350 17 GM Packet PO SCH (21:58)
[2021-06-26] MEDS: Tamsulosin HCl 0.4 MG CAP PO SCH (21:58)
[2021-06-26] MEDS: Lantus 1000 UNITS/10 ML VIAL SC SCH (21:59)
[2021-06-27] MEDS: Acetaminophen 500 MG TAB PO PRN (01:42)
[2021-06-27] MEDS: Melatonin 3 MG TAB PO PRN ×2 (01:43→21:15)
[2021-06-27] MEDS: Gabapentin 300 MG CAP PO SCH ×3 (08:57→21:16)
[2021-06-27] MEDS: Furosemide 40 MG TAB PO SCH (08:57)
[2021-06-27] MEDS: Enoxaparin Sodium 40 MG/0.4 ML SYRINGE SC SCH (08:57)
[2021-06-27] MEDS: Carvedilol 3.125 MG TAB PO SCH ×2 (09:00→17:24)
[2021-06-27] MEDS: metFORMIN 500 MG TAB PO SCH ×2 (09:00→17:24)
[2021-06-27] MEDS: Aspirin Chewable 81 MG TAB PO SCH (09:00)
[2021-06-27] MEDS: Polyethylene Glycol 3350 17 GM Packet PO SCH ×2 (09:01→21:18)
[2021-06-27] MEDS: Atorvastatin Calcium 40 MG TAB PO SCH (21:16)
[2021-06-27] MEDS: Tamsulosin HCl 0.4 MG CAP PO SCH (21:16)
[2021-06-27] MEDS: Lantus 1000 UNITS/10 ML VIAL SC SCH (21:17)
[2021-06-28] MEDS: metFORMIN 500 MG TAB PO SCH ×2 (08:09→17:09)
[2021-06-28] MEDS: Aspirin Chewable 81 MG TAB PO SCH (08:09)
[2021-06-28] MEDS: Carvedilol 3.125 MG TAB PO SCH ×2 (08:09→17:09)
[2021-06-28] MEDS: Furosemide 40 MG TAB PO SCH (08:09)
[2021-06-28] MEDS: Gabapentin 300 MG CAP PO SCH ×3 (08:09→20:15)
[2021-06-28] MEDS: Polyethylene Glycol 3350 17 GM Packet PO SCH ×2 (08:10→21:49)
[2021-06-28] MEDS: Enoxaparin Sodium 40 MG/0.4 ML SYRINGE SC SCH (08:10)
[2021-06-28] MEDS: HumaLOG 300 UNITS/3 ML VIAL SC PRN (17:09)
[2021-06-28] MEDS: Atorvastatin Calcium 40 MG TAB PO SCH (20:15)
[2021-06-28] MEDS: Senokot S 8.6-50 MG TAB PO SCH (20:16)
[2021-06-28] MEDS: Tamsulosin HCl 0.4 MG CAP PO SCH (20:16)
[2021-06-28] MEDS: Lantus 1000 UNITS/10 ML VIAL SC SCH (20:20)
[2021-06-28] MEDS: Bisacodyl 10 MG SUPP PR PRN (21:49)
[2021-06-29] MEDS: Polyethylene Glycol 3350 17 GM Packet PO SCH ×2 (08:19→20:57)
[2021-06-29] MEDS: Senokot S 8.6-50 MG TAB PO SCH ×2 (08:20→20:57)
[2021-06-29] MEDS: Gabapentin 300 MG CAP PO SCH ×3 (08:20→20:57)
[2021-06-29] MEDS: Furosemide 40 MG TAB PO SCH (08:20)
[2021-06-29] MEDS: Aspirin Chewable 81 MG TAB PO SCH (08:20)
[2021-06-29] MEDS: metFORMIN 500 MG TAB PO SCH ×2 (08:21→17:07)
[2021-06-29] MEDS: Carvedilol 3.125 MG TAB PO SCH ×2 (08:21→17:07)
[2021-06-29] MEDS: Enoxaparin Sodium 40 MG/0.4 ML SYRINGE SC SCH (08:21)
[2021-06-29 10:16] LABS: Sodium 133 mmol/L (136-145)
[2021-06-29 10:17] LABS: Anion Gap 13 mmol/L (10-20); BUN (Urea Nitrogen) 23 mg/dL (8.4-25.7); Calc. Creatinine Clearance 96 mL/min (70-130); Calcium 9.1 mg/dL (7.8-10.44); Carbon Dioxide 32 mmol/L (23-31); Chloride 93 mmol/L (98-107); Glucose 347 mg/dL (80-115)
[2021-06-29] MEDS: HumaLOG 300 UNITS/3 ML VIAL SC PRN ×4 (10:25→21:29)
[2021-06-29] MEDS: Furosemide 40 MG/4 ML VIAL SLOW IVP SCH (13:43)
[2021-06-29] MEDS ORDERED: Furosemide 40 MG/4 ML VIAL SLOW IVP SCH (19:15)
[2021-06-29] MEDS: Atorvastatin Calcium 40 MG TAB PO SCH (20:57)
[2021-06-29] MEDS: Tamsulosin HCl 0.4 MG CAP PO SCH (20:58)
[2021-06-29] MEDS: Lantus 1000 UNITS/10 ML VIAL SC SCH (20:58)
[2021-06-29] MEDS ORDERED: Lantus 1000 UNITS/10 ML VIAL SC SCH (21:30)
[2021-06-30] MEDS: Acetaminophen 500 MG TAB PO PRN (04:30)
[2021-06-30] MEDS: Furosemide 40 MG/4 ML VIAL SLOW IVP SCH ×2 (05:12→14:43)
[2021-06-30 05:58] LABS: Anion Gap 13 mmol/L (10-20); BUN (Urea Nitrogen) 30 mg/dL (8.4-25.7); Calc. Creatinine Clearance 93 mL/min (70-130); Carbon Dioxide 36 mmol/L (23-31); Chloride 92 mmol/L (98-107); Glucose 312 mg/dL (80-115); Potassium 5.6 mmol/L (3.5-5.1); Sodium 135 mmol/L (136-145)
[2021-06-30] MEDS: Gabapentin 300 MG CAP PO SCH ×3 (08:30→21:38)
[2021-06-30] MEDS: metFORMIN 500 MG TAB PO SCH ×2 (08:30→17:33)
[2021-06-30] MEDS: Carvedilol 3.125 MG TAB PO SCH ×2 (08:31→17:34)
[2021-06-30] MEDS: Senokot S 8.6-50 MG TAB PO SCH ×2 (08:32→21:40)
[2021-06-30] MEDS: Polyethylene Glycol 3350 17 GM Packet PO SCH ×2 (08:32→21:39)
[2021-06-30] MEDS: Enoxaparin Sodium 40 MG/0.4 ML SYRINGE SC SCH (08:32)
[2021-06-30] MEDS: Aspirin Chewable 81 MG TAB PO SCH (08:32)
[2021-06-30] MEDS: HumaLOG 300 UNITS/3 ML VIAL SC PRN (08:34)
[2021-06-30] MEDS: Lantus 1000 UNITS/10 ML VIAL SC SCH ×2 (09:11→21:39)
[2021-06-30 18:15] LABS: SARS-CoV-2 PCR by NAA Not Detected (NotDetected)
[2021-06-30] MEDS ORDERED: Lorazepam 1 MG TAB PO SCH (21:00)
[2021-06-30] MEDS: Atorvastatin Calcium 40 MG TAB PO SCH (21:38)
[2021-06-30] MEDS: Tamsulosin HCl 0.4 MG CAP PO SCH (21:40)
[2021-07-01] MEDS: Furosemide 40 MG/4 ML VIAL SLOW IVP SCH ×2 (05:36→14:38)
[2021-07-01 06:06] LABS: Anion Gap 13 mmol/L (10-20); BUN (Urea Nitrogen) 48 mg/dL (8.4-25.7); Calc. Creatinine Clearance 66 mL/min (70-130); Calcium 9.3 mg/dL (7.8-10.44); Carbon Dioxide 35 mmol/L (23-31); Chloride 92 mmol/L (98-107); Glucose 187 mg/dL (80-115); Potassium 5.4 mmol/L (3.5-5.1); Sodium 135 mmol/L (136-145)
[2021-07-01] MEDS: Senokot S 8.6-50 MG TAB PO SCH ×2 (08:43→21:56)
[2021-07-01] MEDS: Gabapentin 300 MG CAP PO SCH ×3 (08:44→21:55)
[2021-07-01] MEDS: Enoxaparin Sodium 40 MG/0.4 ML SYRINGE SC SCH (08:44)
[2021-07-01] MEDS: HumaLOG 300 UNITS/3 ML VIAL SC PRN ×4 (08:45→22:00)
[2021-07-01] MEDS: Aspirin Chewable 81 MG TAB PO SCH (08:46)
[2021-07-01] MEDS: metFORMIN 500 MG TAB PO SCH ×2 (08:46→17:02)
[2021-07-01] MEDS: Polyethylene Glycol 3350 17 GM Packet PO SCH ×2 (08:46→21:56)
[2021-07-01] MEDS: Carvedilol 3.125 MG TAB PO SCH ×2 (08:46→17:02)
[2021-07-01] MEDS: Atorvastatin Calcium 40 MG TAB PO SCH (21:55)
[2021-07-01] MEDS: Tamsulosin HCl 0.4 MG CAP PO SCH (21:56)
[2021-07-01] MEDS: Lantus 1000 UNITS/10 ML VIAL SC SCH (21:59)
[2021-07-02 05:32] LABS: #Basophils 0.1 thou/uL (0.0-0.2); #Eosinphils 0.1 thou/uL (0.0-0.7); #Lymphocytes 1.1 thou/uL (1.20-3.40); #Monocytes 0.7 thou/uL (0.11-0.59); #Neutrophils 6.3 thou/uL (1.40-6.50); %Basophils 0.7 % (0.0-1.0); %Eosinophils 0.7 % (0.0-10.0); %Lymphocytes 12.8 % (21.0-51.0); %Monocytes 8.4 % (0.0-10.0); %Neutrophils 77.4 % (42.0-75.0); Hemoglobin 9.3 g/dL (14.0-18.0); Mean Corpuscular HGB CONC 29.8 g/dL (32.0-36.0); Mean Corpuscular Hemoglobin 27.3 pg (27.0-31.0); Mean Corpuscular Volume 91.4 fL (78.0-98.0); Mean Platelet Volume 6.6 fL (7.4-10.4); Platelet Count 284 thou/uL (130-400); RBC Distribution Width 14.4 % (11.5-14.5); Red Blood Cell (RBC) Count 3.42 mill/uL (4.70-6.10); White Blood Cell (WBC) Count 8.2 thou/uL (4.8-10.8)
[2021-07-02] MEDS: Furosemide 40 MG/4 ML VIAL SLOW IVP SCH ×4 (05:42→22:45)
[2021-07-02 05:58] LABS: Anion Gap 14 mmol/L (10-20); BUN (Urea Nitrogen) 56 mg/dL (8.4-25.7); Calc. Creatinine Clearance 72 mL/min (70-130); Calcium 9.4 mg/dL (7.8-10.44); Carbon Dioxide 35 mmol/L (23-31); Chloride 93 mmol/L (98-107); Glucose 224 mg/dL (80-115); Potassium 5.9 mmol/L (3.5-5.1); Sodium 136 mmol/L (136-145)
[2021-07-02] MEDS: Gabapentin 300 MG CAP PO SCH ×3 (08:11→20:15)
[2021-07-02] MEDS: Senokot S 8.6-50 MG TAB PO SCH ×2 (08:11→20:16)
[2021-07-02] MEDS: Aspirin Chewable 81 MG TAB PO SCH (08:11)
[2021-07-02] MEDS: Carvedilol 3.125 MG TAB PO SCH ×2 (08:11→16:52)
[2021-07-02] MEDS: metFORMIN 500 MG TAB PO SCH ×2 (08:11→16:52)
[2021-07-02] MEDS: Polyethylene Glycol 3350 17 GM Packet PO SCH ×2 (08:12→20:15)
[2021-07-02] MEDS: Enoxaparin Sodium 40 MG/0.4 ML SYRINGE SC SCH (08:12)
[2021-07-02] MEDS: HumaLOG 300 UNITS/3 ML VIAL SC PRN ×3 (08:14→16:52)
[2021-07-02] MEDS: Atorvastatin Calcium 40 MG TAB PO SCH (20:14)
[2021-07-02] MEDS: Tamsulosin HCl 0.4 MG CAP PO SCH (20:16)
[2021-07-02] MEDS: Lantus 1000 UNITS/10 ML VIAL SC SCH ×2 (21:44→21:47)
[2021-07-03] MEDS: Furosemide 40 MG/4 ML VIAL SLOW IVP SCH ×2 (05:36→14:04)
[2021-07-03 05:45] LABS: Anion Gap 13 mmol/L (10-20); BUN (Urea Nitrogen) 54 mg/dL (8.4-25.7); Calc. Creatinine Clearance 74 mL/min (70-130); Calcium 9.1 mg/dL (7.8-10.44); Carbon Dioxide 39 mmol/L (23-31); Glucose 359 mg/dL (80-115)
[2021-07-03 05:53] LABS: Chloride 88 mmol/L (98-107); Sodium 134 mmol/L (136-145)
[2021-07-03] MEDS: Gabapentin 300 MG CAP PO SCH ×3 (08:23→21:04)
[2021-07-03] MEDS: Senokot S 8.6-50 MG TAB PO SCH ×2 (08:23→21:04)
[2021-07-03] MEDS: Aspirin Chewable 81 MG TAB PO SCH (08:23)
[2021-07-03] MEDS: Carvedilol 3.125 MG TAB PO SCH ×2 (08:23→17:31)
[2021-07-03] MEDS: metFORMIN 500 MG TAB PO SCH ×2 (08:23→17:31)
[2021-07-03] MEDS: Polyethylene Glycol 3350 17 GM Packet PO SCH ×2 (08:24→21:09)
[2021-07-03] MEDS: Enoxaparin Sodium 40 MG/0.4 ML SYRINGE SC SCH (08:24)
[2021-07-03] MEDS: HumaLOG 300 UNITS/3 ML VIAL SC PRN ×3 (08:28→17:31)
[2021-07-03] MEDS: Metolazone 5 MG TAB PO SCH (10:40)
[2021-07-03] MEDS: Atorvastatin Calcium 40 MG TAB PO SCH (21:06)
[2021-07-03] MEDS: Tamsulosin HCl 0.4 MG CAP PO SCH (21:07)
[2021-07-03] MEDS: Acetaminophen 500 MG TAB PO PRN (21:07)
[2021-07-03] MEDS: Lantus 1000 UNITS/10 ML VIAL SC SCH (21:24)
[2021-07-04 05:22] LABS: #Basophils 0.1 thou/uL (0.0-0.2); #Monocytes 0.7 thou/uL (0.11-0.59); #Neutrophils 4.9 thou/uL (1.40-6.50); %Basophils 0.9 % (0.0-1.0); %Eosinophils 0.4 % (0.0-10.0); %Lymphocytes 14.6 % (21.0-51.0); %Monocytes 10.1 % (0.0-10.0); Hemoglobin 8.8 g/dL (14.0-18.0); Mean Corpuscular HGB CONC 29.7 g/dL (32.0-36.0); Mean Corpuscular Hemoglobin 27.4 pg (27.0-31.0); Mean Corpuscular Volume 92.1 fL (78.0-98.0); Mean Platelet Volume 6.3 fL (7.4-10.4); Platelet Count 254 thou/uL (130-400); RBC Distribution Width 14.6 % (11.5-14.5); Red Blood Cell (RBC) Count 3.22 mill/uL (4.70-6.10); White Blood Cell (WBC) Count 6.6 thou/uL (4.8-10.8)
[2021-07-04 05:45] LABS: Anion Gap 15 mmol/L (10-20); BUN (Urea Nitrogen) 55 mg/dL (8.4-25.7); Calc. Creatinine Clearance 64 mL/min (70-130); Calcium 8.8 mg/dL (7.8-10.44); Glucose 214 mg/dL (80-115)
[2021-07-04 05:51] LABS: Carbon Dioxide 42 mmol/L (23-31); Chloride 87 mmol/L (98-107); Potassium 3.6 mmol/L (3.5-5.1); Sodium 140 mmol/L (136-145)
[2021-07-04] MEDS: Furosemide 40 MG/4 ML VIAL SLOW IVP SCH ×2 (06:37→16:47)
[2021-07-04] MEDS: Carvedilol 3.125 MG TAB PO SCH ×2 (08:58→17:29)
[2021-07-04] MEDS: metFORMIN 500 MG TAB PO SCH ×2 (08:58→17:29)
[2021-07-04] MEDS: Metolazone 5 MG TAB PO SCH (08:58)
[2021-07-04] MEDS: Senokot S 8.6-50 MG TAB PO SCH ×2 (08:59→21:53)
[2021-07-04] MEDS: Aspirin Chewable 81 MG TAB PO SCH (08:59)
[2021-07-04] MEDS: Polyethylene Glycol 3350 17 GM Packet PO SCH ×2 (08:59→22:09)
[2021-07-04] MEDS: Gabapentin 300 MG CAP PO SCH ×3 (09:00→21:54)
[2021-07-04] MEDS: Enoxaparin Sodium 40 MG/0.4 ML SYRINGE SC SCH (09:00)
[2021-07-04] MEDS: HumaLOG 300 UNITS/3 ML VIAL SC PRN ×2 (12:49→21:55)
[2021-07-04] MEDS: Bisacodyl 10 MG SUPP PR PRN (12:50)
[2021-07-04] MEDS: Acetaminophen 500 MG TAB PO PRN (17:55)
[2021-07-04] MEDS: Melatonin 3 MG TAB PO PRN (21:54)
[2021-07-04] MEDS: Tamsulosin HCl 0.4 MG CAP PO SCH (21:54)
[2021-07-04] MEDS: Atorvastatin Calcium 40 MG TAB PO SCH (21:54)
[2021-07-04] MEDS: Lantus 1000 UNITS/10 ML VIAL SC SCH (21:55)
[2021-07-05] MEDS: Furosemide 40 MG/4 ML VIAL SLOW IVP SCH ×2 (05:54→13:05)
[2021-07-05 06:04] LABS: Anion Gap 14 mmol/L (10-20); BUN (Urea Nitrogen) 48 mg/dL (8.4-25.7); Calc. Creatinine Clearance 83 mL/min (70-130); Calcium 8.8 mg/dL (7.8-10.44); Glucose 195 mg/dL (80-115)
[2021-07-05 06:12] LABS: Chloride 84 mmol/L (98-107); Sodium 139 mmol/L (136-145)
[2021-07-05 06:27] LABS: Carbon Dioxide 45 mmol/L (23-31)
[2021-07-05] MEDS: Gabapentin 300 MG CAP PO SCH ×3 (08:21→22:20)
[2021-07-05] MEDS: metFORMIN 500 MG TAB PO SCH ×2 (08:21→17:49)
[2021-07-05] MEDS: Polyethylene Glycol 3350 17 GM Packet PO SCH ×2 (08:21→22:22)
[2021-07-05] MEDS: Metolazone 5 MG TAB PO SCH (08:21)
[2021-07-05] MEDS: Enoxaparin Sodium 40 MG/0.4 ML SYRINGE SC SCH (08:21)
[2021-07-05] MEDS: Carvedilol 3.125 MG TAB PO SCH ×2 (08:21→17:49)
[2021-07-05] MEDS: Senokot S 8.6-50 MG TAB PO SCH ×2 (08:21→22:20)
[2021-07-05] MEDS: Aspirin Chewable 81 MG TAB PO SCH (08:23)
[2021-07-05] MEDS: HumaLOG 300 UNITS/3 ML VIAL SC PRN ×2 (13:02→17:49)
[2021-07-05] MEDS: Acetaminophen 500 MG TAB PO PRN (13:04)
[2021-07-05 16:28] LABS: ALT (SGPT) 47 U/L (8-55); AST (SGOT) 16 U/L (5-34); Albumin 2.9 g/dL (3.4-4.8); Alkaline Phosphatase 175 U/L (40-110); Anion Gap 14 mmol/L (10-20); BUN (Urea Nitrogen) 43 mg/dL (8.4-25.7); Bilirubin, Total 0.2 mg/dL (0.2-1.2); Calc. Creatinine Clearance 87 mL/min (70-130); Calcium 8.9 mg/dL (7.8-10.44); Globulin 3.3 g/dL (2.4-3.5); Glucose 244 mg/dL (80-115); Protein, Total 6.2 g/dL (5.8-8.1)
[2021-07-05 16:35] LABS: Chloride 82 mmol/L (98-107); Potassium 3.1 mmol/L (3.5-5.1); Sodium 139 mmol/L (136-145)
[2021-07-05 16:57] LABS: Carbon Dioxide 46 mmol/L (23-31)
[2021-07-05] MEDS: Potassium Chloride 20 MEQ TAB PO SCH (19:51)
[2021-07-05] MEDS: Atorvastatin Calcium 40 MG TAB PO SCH (22:20)
[2021-07-05] MEDS: Tamsulosin HCl 0.4 MG CAP PO SCH (22:21)
[2021-07-05] MEDS: Melatonin 3 MG TAB PO PRN (22:21)
[2021-07-05] MEDS: Lantus 1000 UNITS/10 ML VIAL SC SCH (22:22)
[2021-07-06] MEDS: Furosemide 40 MG/4 ML VIAL SLOW IVP SCH ×2 (06:08→14:13)
[2021-07-06 06:30] LABS: Anion Gap 16 mmol/L (10-20); BUN (Urea Nitrogen) 45 mg/dL (8.4-25.7); Calc. Creatinine Clearance 93 mL/min (70-130); Calcium 9.1 mg/dL (7.8-10.44); Chloride 84 mmol/L (98-107); Glucose 82 mg/dL (80-115); Potassium 3.5 mmol/L (3.5-5.1); Sodium 143 mmol/L (136-145)
[2021-07-06 06:34] LABS: Carbon Dioxide 47 mmol/L (23-31)
[2021-07-06] MEDS: Carvedilol 3.125 MG TAB PO SCH ×2 (08:36→16:31)
[2021-07-06] MEDS: Potassium Chloride 20 MEQ TAB PO SCH ×2 (08:37→16:31)
[2021-07-06] MEDS: Gabapentin 300 MG CAP PO SCH ×3 (08:37→21:09)
[2021-07-06] MEDS: metFORMIN 500 MG TAB PO SCH ×2 (08:37→16:31)
[2021-07-06] MEDS: Metolazone 5 MG TAB PO SCH (08:37)
[2021-07-06] MEDS: Aspirin Chewable 81 MG TAB PO SCH (08:37)
[2021-07-06] MEDS: Senokot S 8.6-50 MG TAB PO SCH ×2 (08:37→21:09)
[2021-07-06] MEDS: Enoxaparin Sodium 40 MG/0.4 ML SYRINGE SC SCH (08:38)
[2021-07-06] MEDS: Polyethylene Glycol 3350 17 GM Packet PO SCH ×2 (08:38→21:14)
[2021-07-06] MEDS: HumaLOG 300 UNITS/3 ML VIAL SC PRN ×3 (12:32→21:12)
[2021-07-06] MEDS: Tamsulosin HCl 0.4 MG CAP PO SCH (21:08)
[2021-07-06] MEDS: Atorvastatin Calcium 40 MG TAB PO SCH (21:08)
[2021-07-06] MEDS: Lantus 1000 UNITS/10 ML VIAL SC SCH (21:09)
[2021-07-07] MEDS: Furosemide 40 MG/4 ML VIAL SLOW IVP SCH ×2 (05:24→14:53)
[2021-07-07 05:54] LABS: Anion Gap 13 mmol/L (10-20); BUN (Urea Nitrogen) 44 mg/dL (8.4-25.7); Calc. Creatinine Clearance 91 mL/min (70-130); Glucose 192 mg/dL (80-115)
[2021-07-07 06:02] LABS: Carbon Dioxide 48 mmol/L (23-31); Chloride 83 mmol/L (98-107); Potassium 4.1 mmol/L (3.5-5.1); Sodium 140 mmol/L (136-145)
[2021-07-07] MEDS: Carvedilol 3.125 MG TAB PO SCH ×2 (09:24→17:33)
[2021-07-07] MEDS: metFORMIN 500 MG TAB PO SCH ×2 (09:24→17:33)
[2021-07-07] MEDS: Metolazone 5 MG TAB PO SCH (09:24)
[2021-07-07] MEDS: Enoxaparin Sodium 40 MG/0.4 ML SYRINGE SC SCH (09:25)
[2021-07-07] MEDS: Gabapentin 300 MG CAP PO SCH ×3 (09:25→21:32)
[2021-07-07] MEDS: Potassium Chloride 20 MEQ TAB PO SCH ×2 (09:25→17:33)
[2021-07-07] MEDS: Aspirin Chewable 81 MG TAB PO SCH (09:25)
[2021-07-07] MEDS: Senokot S 8.6-50 MG TAB PO SCH ×2 (09:26→21:34)
[2021-07-07] MEDS: Polyethylene Glycol 3350 17 GM Packet PO SCH ×2 (09:26→21:35)
[2021-07-07] MEDS: HumaLOG 300 UNITS/3 ML VIAL SC PRN ×3 (09:29→17:33)
[2021-07-07] MEDS: Atorvastatin Calcium 40 MG TAB PO SCH (21:32)
[2021-07-07] MEDS: Lantus 1000 UNITS/10 ML VIAL SC SCH (21:33)
[2021-07-07] MEDS: Tamsulosin HCl 0.4 MG CAP PO SCH (21:34)
[2021-07-08] MEDS: Melatonin 3 MG TAB PO PRN ×2 (00:40→20:30)
[2021-07-08 05:35] LABS: #Basophils 0.1 thou/uL (0.0-0.2); #Eosinphils 0.1 thou/uL (0.0-0.7); #Lymphocytes 1.3 thou/uL (1.20-3.40); #Monocytes 0.8 thou/uL (0.11-0.59); #Neutrophils 8.9 thou/uL (1.40-6.50); %Basophils 0.6 % (0.0-1.0); %Lymphocytes 11.3 % (21.0-51.0); %Neutrophils 80.1 % (42.0-75.0); Hemoglobin 9.4 g/dL (14.0-18.0); Mean Corpuscular HGB CONC 29.7 g/dL (32.0-36.0); Mean Corpuscular Hemoglobin 27.2 pg (27.0-31.0); Mean Corpuscular Volume 91.7 fL (78.0-98.0); Mean Platelet Volume 6.8 fL (7.4-10.4); Platelet Count 241 thou/uL (130-400); RBC Distribution Width 14.8 % (11.5-14.5); Red Blood Cell (RBC) Count 3.45 mill/uL (4.70-6.10); White Blood Cell (WBC) Count 11.1 thou/uL (4.8-10.8)
[2021-07-08] MEDS: Furosemide 40 MG/4 ML VIAL SLOW IVP SCH (05:48)
[2021-07-08 05:58] LABS: Anion Gap 14 mmol/L (10-20); BUN (Urea Nitrogen) 46 mg/dL (8.4-25.7); Calc. Creatinine Clearance 87 mL/min (70-130); Glucose 298 mg/dL (80-115)
[2021-07-08 06:00] LABS: Carbon Dioxide 47 mmol/L (23-31); Chloride 83 mmol/L (98-107); Potassium 5.4 mmol/L (3.5-5.1); Sodium 139 mmol/L (136-145)
[2021-07-08] MEDS: Polyethylene Glycol 3350 17 GM Packet PO SCH ×2 (08:53→20:29)
[2021-07-08] MEDS: Metolazone 5 MG TAB PO SCH (08:53)
[2021-07-08] MEDS: Enoxaparin Sodium 40 MG/0.4 ML SYRINGE SC SCH (08:53)
[2021-07-08] MEDS: Gabapentin 300 MG CAP PO SCH ×3 (08:53→20:28)
[2021-07-08] MEDS: metFORMIN 500 MG TAB PO SCH ×2 (08:53→17:27)
[2021-07-08] MEDS: Carvedilol 3.125 MG TAB PO SCH ×2 (08:53→17:27)
[2021-07-08] MEDS: Aspirin Chewable 81 MG TAB PO SCH (08:53)
[2021-07-08] MEDS: Senokot S 8.6-50 MG TAB PO SCH ×2 (08:53→20:30)
[2021-07-08] MEDS: HumaLOG 300 UNITS/3 ML VIAL SC PRN ×4 (08:54→21:57)
[2021-07-08] MEDS: Potassium Chloride 20 MEQ TAB PO SCH (10:46)
[2021-07-08] MEDS: Furosemide 40 MG TAB PO SCH (14:59)
[2021-07-08] MEDS: Lubiprostone 8 MCG CAP PO SCH (17:27)
[2021-07-08] MEDS: Atorvastatin Calcium 40 MG TAB PO SCH (20:28)
[2021-07-08] MEDS: Tamsulosin HCl 0.4 MG CAP PO SCH (20:30)
[2021-07-08] MEDS: Lantus 1000 UNITS/10 ML VIAL SC SCH (21:51)
[2021-07-09 00:32] LABS: SARS-CoV-2 PCR by NAA Not Detected (NotDetected)
[2021-07-09 05:41] LABS: Calcium 9.2 mg/dL (7.8-10.44); Chloride 82 mmol/L (98-107); Potassium 5.1 mmol/L (3.5-5.1); Sodium 139 mmol/L (136-145)
[2021-07-09 06:01] LABS: BUN (Urea Nitrogen) 55 mg/dL (8.4-25.7); Calc. Creatinine Clearance 90 mL/min (70-130); Glucose 215 mg/dL (80-115)
[2021-07-09 06:26] LABS: Carbon Dioxide 46 mmol/L (23-31)
[2021-07-09 06:29] LABS: Anion Gap 16 mmol/L (10-20)
[2021-07-09 06:54] VITALS: BMI 22.4
[2021-07-09] MEDS ORDERED: Sodium Chloride 0.9% 100 ML BAG ONE (06:58)
[2021-07-09] MEDS: Aspirin Chewable 81 MG TAB PO SCH (08:52)
[2021-07-09] MEDS: Carvedilol 3.125 MG TAB PO SCH ×2 (08:52→17:41)
[2021-07-09] MEDS: Lubiprostone 8 MCG CAP PO SCH ×2 (08:52→17:41)
[2021-07-09] MEDS: metFORMIN 500 MG TAB PO SCH ×2 (08:52→17:41)
[2021-07-09] MEDS: Acetaminophen 500 MG TAB PO PRN ×2 (08:53→17:41)
[2021-07-09] MEDS: Gabapentin 300 MG CAP PO SCH ×3 (08:53→21:38)
[2021-07-09] MEDS: Metolazone 5 MG TAB PO SCH (08:53)
[2021-07-09] MEDS: Furosemide 40 MG TAB PO SCH ×2 (08:53→15:09)
[2021-07-09] MEDS: Senokot S 8.6-50 MG TAB PO SCH ×2 (08:53→21:38)
[2021-07-09] MEDS: Polyethylene Glycol 3350 17 GM Packet PO SCH ×2 (08:54→21:51)
[2021-07-09] MEDS: Enoxaparin Sodium 40 MG/0.4 ML SYRINGE SC SCH (08:54)
[2021-07-09] MEDS: HumaLOG 300 UNITS/3 ML VIAL SC PRN ×3 (08:56→17:44)
[2021-07-09] MEDS ORDERED: Iopamidol 370 76% 125 ML VIAL FS ONE (12:31)
[2021-07-09] MEDS: Atorvastatin Calcium 40 MG TAB PO SCH (21:39)
[2021-07-09] MEDS: Tamsulosin HCl 0.4 MG CAP PO SCH (21:39)
[2021-07-09] MEDS: Lantus 1000 UNITS/10 ML VIAL SC SCH (21:43)
[2021-07-10] MEDS: Furosemide 40 MG/4 ML VIAL SLOW IVP SCH ×2 (06:32→16:45)
[2021-07-10] MEDS ORDERED: Furosemide 40 MG/4 ML VIAL ONE (09:16)
[2021-07-10] MEDS: Lubiprostone 8 MCG CAP PO SCH (09:37)
[2021-07-10] MEDS: metFORMIN 500 MG TAB PO SCH (09:37)
[2021-07-10] MEDS: Metolazone 5 MG TAB PO SCH (09:37)
[2021-07-10] MEDS: Aspirin Chewable 81 MG TAB PO SCH (09:37)
[2021-07-10] MEDS: Carvedilol 3.125 MG TAB PO SCH (09:37)
[2021-07-10] MEDS: Enoxaparin Sodium 40 MG/0.4 ML SYRINGE SC SCH (09:38)
[2021-07-10] MEDS: Gabapentin 300 MG CAP PO SCH ×2 (09:38→16:45)
[2021-07-10] MEDS: Furosemide 40 MG TAB PO SCH ×2 (09:38→16:44)
[2021-07-10] MEDS: Polyethylene Glycol 3350 17 GM Packet PO SCH (09:39)
[2021-07-10] MEDS: Senokot S 8.6-50 MG TAB PO SCH (09:39)
[2021-07-10 13:15] VITALS: BP 113/73; TEMP 97.7
== END 2021-07-10 16:25 | disposition short-term general hospital (02) | DRG 947 ==
LOC: MADMS 22:01
PROVIDERS: ADMIT Family Medicine; ATTEND Family Medicine
DX: R53.1 Weakness (principal); I22.2 Subsequent non-ST elevation (NSTEMI) myocardial infarction; I50.23 Acute on chronic systolic (congestive) heart failure; I42.9 Cardiomyopathy, unspecified; K56.609 Unspecified intestinal obstruction, unspecified as to partial versus complete obstruction; E11.51 Type 2 diabetes mellitus with diabetic peripheral angiopathy without gangrene; I25.10 Atherosclerotic heart disease of native coronary artery without angina pectoris; E11.42 Type 2 diabetes mellitus with diabetic polyneuropathy; E78.5 Hyperlipidemia, unspecified; D63.8 Anemia in other chronic diseases classified elsewhere; K59.00 Constipation, unspecified; E87.5 Hyperkalemia; F41.9 Anxiety disorder, unspecified; R33.9 Retention of urine, unspecified; Z89.611 Acquired absence of right leg above knee; I25.2 Old myocardial infarction
CPT/HCPCS: 36415; 36416; 71045; 74018; 74177; 80048; 80053; 81001; 83880; 85025; J1650; J1815; J1940; J3490; Q9967; U0003; U0005

== ENCOUNTER 2022-03-20 12:38 | Outpatient (CLI) | payer OTHER ==
[2022-03-20 13:25] LABS: Bilirubin Negative (Negative); Blood, Urine Negative (Negative); Clarity Clear (Clear); Glucose, Urine (Dipstick) Negative (Negative); Ketone, Urine Trace mg/dL (Negative); Leukocyte Negative (Negative); Nitrite Negative (Negative); Protein, Urine (Dipstick) Negative (Neg-Trace); Specific Gravity, Urine 1.015 (1.005-1.030); Urobilinogen 0.2 mg/dL (Less than 2); pH, Urine 6.5 (5.0-9.0)
[2022-03-20 14:00] LABS: Bacteria/HPF Rare-Few HPF (None Seen); RBC/HPF 0-3 HPF (0-3); Squamous Epithelial 0-3 HPF (0-3); WBC/HPF None Seen HPF (0-3)
== END 2022-03-20 12:39 | disposition home or self-care (01) ==
LOC: MADLAB 12:38
PROVIDERS: ATTEND Family Medicine
DX: R30.0 Dysuria (principal)
CPT/HCPCS: 81001; 87086

== ENCOUNTER 2023-01-02 19:51 | Emergency (ER) | payer BC, OTHER, SELFPAY | END 2023-01-02 21:05 | disposition home or self-care (01) | LOC: MADERS 19:51 | DX: I96 Gangrene, not elsewhere classified (principal); K21.9 Gastro-esophageal reflux disease without esophagitis; E78.00 Pure hypercholesterolemia, unspecified; E11.9 Type 2 diabetes mellitus without complications | CPT/HCPCS: 99283 ==

== ENCOUNTER 2023-06-25 12:00 | Emergency (ER) | payer MEDICAID, SELFPAY ==
[2023-06-25] MEDS ORDERED: Lactated Ringer's 2,000 ML ONE (12:55)
[2023-06-25 13:10] LABS: CO2 Tension (PvCO2) 36.9 mmHg (42.0-51.0); Calcium, Ionized 1.07 mmol/L (1.15-1.33); Chloride 97 mmol/L (98-107); Hematocrit 33.9 % (42.0-52.0); Hemoglobin 11.2 g/dL (14.0-18.0); Hemoglobin - Calc 12.9 g/dL (14.0-18.0); Mean Corpuscular Hemoglobin 28.7 pg (27.0-31.0); Mean Corpuscular Volume 86.7 fl (78.0-98.0); Mean Platelet Volume 7.2 fL (7.4-10.4); Platelet Count 380 10x3/uL (130-400); Potassium 5.4 mmol/L (3.5-5.1); Red Blood Cell (RBC) Count 3.91 mill/uL (4.70-6.10); Sodium 128 mmol/L (138-145); T. Carbon Dioxide 26.1 mmol/L (22.0-28.0); vO2 Saturation-calc 99.3 % (60.0-85.0)
[2023-06-25 13:15] LABS: Band 13 % (5-11); Eosinophils 1 % (0-10); Lymphocytes 10 % (21-51); MDiff Complete? YES; Manual Diff?? YES; Monocytes 7 % (0-10); Neutrophil 69 % (42-75); RBC Morph Comment Within Normal Limits
[2023-06-25 13:16] LABS: Platelet Adequacy Comment Appears Adequate
[2023-06-25 13:20] LABS: ALT (SGPT) 10 U/L (8-55); AST (SGOT) 16 U/L (5-34); Albumin 3.1 g/dL (3.4-4.8); Alkaline Phosphatase 123 U/L (40-110); Anion Gap 25 mmol/L (10-20); BUN (Urea Nitrogen) 19 mg/dL (8.4-25.7); Bilirubin, Total 0.2 mg/dL (0.2-1.2); Calc. Creatinine Clearance 0 mL/min (70-130); Calcium 9.3 mg/dL (7.8-10.44); Carbon Dioxide 21 mmol/L (23-31); Chloride 92 mmol/L (98-107); Estimated GFR 91; Globulin 4.2 g/dL (2.4-3.5); Glucose 381 mg/dL (80-115); Potassium 5.1 mmol/L (3.5-5.1); Protein, Total 7.3 g/dL (5.8-8.1); Sodium 133 mmol/L (136-145)
[2023-06-25 13:33] LABS: Lipase 5 U/L (8-78)
[2023-06-25] MEDS ORDERED: Cefepime 2 GM VIAL ONE (14:03)
[2023-06-25] MEDS ORDERED: Insulin Regular 300 UNITS/3 ML VIAL ONE (14:03)
[2023-06-25] MEDS ORDERED: Sodium Chloride 0.9% 250 ML 250 ML ONE (14:03)
[2023-06-25] MEDS ORDERED: Vancomycin 1 GM VIAL ONE (14:03)
[2023-06-25] MEDS ORDERED: Sodium Chloride 0.9% 200 ML ONE (14:03)
[2023-06-25 18:34] LABS: PTT 33.2 sec (22.9-36.1); Prothrombin Time 13.8 sec (12.0-14.7)
== END 2023-06-25 15:10 | disposition short-term general hospital (02) ==
LOC: MADERS 12:00
DX: E11.10 Type 2 diabetes mellitus with ketoacidosis without coma (principal); L02.31 Cutaneous abscess of buttock; K21.9 Gastro-esophageal reflux disease without esophagitis; E78.00 Pure hypercholesterolemia, unspecified
CPT/HCPCS: 36416; 82010; 82330; 82803; 83605; 83690; 83735; 85610; 85730; 87040; 87077; 87149; 87186; 94760; 96361; 96365; 96367; J0692; J1815; J3370; J7050; J7120

== ENCOUNTER 2023-07-17 22:16 | Emergency (ER) | payer MEDICAID ==
[~2023-07-17 22:16] MED LIST changes: +Calcium Gluc 4.6 MEQ/10 ML (100 MG/ML) ONE; +Dextrose 50% Abboject 50 ML SYRINGE ONE; +Furosemide 20 MG/2 ML VIAL ONE; +Insulin Regular 300 UNITS/3 ML VIAL ONE; +Iopamidol 370 76% 100 ML VIAL ONE; -Sodium Chloride 0.9% 1,000 ML BAG ONE; -Sodium Chloride 0.9% 100 ML BAG ONE; -Sodium Chloride 0.9% 500 ML BAG ONE
[2023-07-17 23:19] LABS: #Basophils 0.1 thou/uL (0.0-0.2); #Eosinphils 0.1 thou/uL (0.0-0.7); #Lymphocytes 1.4 thou/uL (1.20-3.40); #Monocytes 0.6 thou/uL (0.11-0.59); #Neutrophils 5.9 thou/uL (1.40-6.50); %Basophils 0.8 % (0.0-1.0); %Eosinophils 1.5 % (0.0-10.0); %Lymphocytes 17.2 % (21.0-51.0); %Monocytes 7.6 % (0.0-10.0); %Neutrophils 72.9 % (42.0-75.0); Hematocrit 29.8 % (42.0-52.0); Hemoglobin 9.1 g/dL (14.0-18.0); Mean Corpuscular HGB CONC 30.4 g/dL (32.0-36.0); Mean Corpuscular Hemoglobin 28.2 pg (27.0-31.0); Mean Corpuscular Volume 92.8 fl (78.0-98.0); Mean Platelet Volume 7.2 fL (7.4-10.4); Platelet Count 235 10x3/uL (130-400); RBC Distribution Width 16.3 % (11.5-14.5); Red Blood Cell (RBC) Count 3.22 mill/uL (4.70-6.10)
[2023-07-17 23:39] LABS: ALT (SGPT) 16 U/L (8-55); AST (SGOT) 24 U/L (5-34); Albumin 2.9 g/dL (3.4-4.8); Alkaline Phosphatase 162 U/L (40-110); Anion Gap 14 mmol/L (10-20); BUN (Urea Nitrogen) 36 mg/dL (8.4-25.7); Bilirubin, Total 0.2 mg/dL (0.2-1.2); Calc. Creatinine Clearance 0 mL/min (70-130); Calcium 8.4 mg/dL (7.8-10.44); Carbon Dioxide 26 mmol/L (23-31); Chloride 96 mmol/L (98-107); Estimated GFR 90; Globulin 3.2 g/dL (2.4-3.5); Glucose 266 mg/dL (80-115); Protein, Total 6.1 g/dL (5.8-8.1); Sodium 130 mmol/L (136-145)
[2023-07-17 23:40] LABS: Potassium 6.2 mmol/L (3.5-5.1)
== END 2023-07-18 03:37 | disposition short-term general hospital (02) ==
LOC: MADERS 22:16
DX: J90 Pleural effusion, not elsewhere classified (principal); R60.1 Generalized edema; R33.9 Retention of urine, unspecified; E11.9 Type 2 diabetes mellitus without complications
CPT/HCPCS: 36416; 51702; 51798; 71250; 74177; 80053; 83880; 85025; 93005; 96374; 96375; J0612; J1815; J1940; J7999; Q9967